=== PATIENT | male | born 1960 | race Caucasian/White ===

== ENCOUNTER 2024-12-22 06:49 | Inpatient (IN) | payer OTHER, SELFPAY ==
[2024-12-22] VITALS (12 sets, daily range): BP systolic 169–241; BP diastolic 81–132; PULSE 70; BMI 33.7
[2024-12-22 04:06] LABS: % Basophils 0.7 % (0-2); % Immature Granulocytes 0.6 % (0-0.5); % Lymphocytes 13.8 % (20.5-51.1); % Monocytes 7.7 % (1.7-9.3); % Neutrophils 74.2 % (42.2-75.2); Absolute Basophils 0.1 10^3/uL (0-0.2); Absolute Eosinophils 0.2 10^3/uL (0-0.7); Absolute Immature Granulocytes 0.1 10^3/uL (0-0.05); Absolute Lymphocytes 1.1 10^3/uL (1.2-3.4); Absolute Monocytes 0.6 10^3/uL (0.1-0.6); Hematocrit 43.9 % (39.0-52.0); Hemoglobin 15.6 g/dL (13.0-18.0); Mean Corp Hgb Conc. 35.5 g/dL (33.0-37.0); Mean Corpuscular Hgb 28.9 pg (27.0-31.0); Mean Corpuscular Volume 81.4 fL (80.0-94.0); Nucleated Red Blood Cells % 0 % (-); Platelet Count 168 10^3/uL (130-400); Red Blood Cell Count 5.39 10^6/uL (4.70-6.10); Red Cell Dist. Width 13.2 % (11.5-14.5); White Blood Cell Count 8.1 10^3/uL (4.8-10.8)
[2024-12-22 04:40] LABS: ALT (SGPT) 20 U/L (0-50); AST (SGOT) 20 U/L (17-59); Albumin 4.4 g/dl (3.5-5.0); Alkaline Phosphatase 92 U/L (38-126); Blood Urea Nitrogen 20 mg/dl (9-20); Calcium 8.9 mg/dl (8.4-10.2); Carbon Dioxide 23 mmol/L (22-30); Chloride 101 mmol/L (98-107); Glucose 413 mg/dl (70-99); Potassium 3.9 mmol/L (3.5-5.1); Sodium 134 mmol/L (135-145); Total Bilirubin 1.2 mg/dl (0.2-1.3); Total Protein 6.9 g/dl (6.3-8.2); eGFR > 60.00
[2024-12-22] MEDS: NSS 1000 IV (04:53)
[2024-12-22 05:37] LABS: Lactic Acid 2.2 mmol/L (0.7-2.0)
--- NOTE | 2024-12-22 05:59 | ED.GENMED ---
History of Present Illness
General
Chief Complaint: Rectal Bleeding
Source: patient
Exam Limitations: none
Time Seen by Provider: 12/22/24 04:35
Nursing documentation reviewed up to this point in time: agreed with
History of Present Illness
History of Present Illness:
This is a 64-year-old gentleman with history of hypertension, hlv-vhqcbhw-wehowdxiu diabetes, CAD.
He presents with rectal bleeding that began around 11 PM last night. He states he passed approximately 4-5 bright red to maroon bloody stools accompanied with intermittent generalized crampy abdominal pain. With each bowel movement passing
approximately a cupful of blood. No history of similar episodes in the past.
He takes no anticoagulants save for low-dose aspirin.
He denies dizziness nor lightheadedness, denies chest pain or palpitations, no coughing or shortness of breath, no nausea nor vomiting.
He has had a colonoscopy in the past but perhaps at least 10 years ago. He does not believe there was any significant findings.
Since arrival to the ED patient has passed 1 small to moderate size bloody bowel movement.
Medications include valsartan, metoprolol, low-dose aspirin, as needed Tylenol. He is prescribed glipizide but recently discontinued this on his own.
Past History
Past History
ED Past Medical History: CAD, HTN, Hypercholesterolemia and NIDDM
ED Past Surgical History: Cardiac (PTCA with stent) and Orthopedic (Knee arthroscopy)
Social History
Tobacco: Non-smoker
Alcohol: None
Personal: Single
Living: alone
Employment: Retired
Family History
Family History: Other (Noncontributory)
Phy Exam
Physical Exam
Physical Exam:
GENERAL: 64-year-old gentleman appears his stated age, awake and alert, pleasant, appears in no acute distress.
EYE: anicteric
NECK: Supple, nontender, no meningismus, no significant adenopathy.
ENT: oral mucosa is moist. No rhinorrhea.
CARDIAC: Regular rate and rhythm. no murmur.
LUNGS: Clear breath sounds bilaterally, no acute respiratory distress, no wheezes/rales/rhonchi
ABDOMEN: Soft, nondistended, without focal tenderness, no r/g, no cvat. normoactive BS.
NEUROLOGICAL: Alert and oriented x3, no focal neuro deficits. Gait is page and steady.
SKIN: Warm and dry, normal color, skin intact. No rash.
MUSCULOSKELETAL: No C/C/E. peripheral pulses are full and equal b/l. No palpable tenderness.
PSYCH: Normal and appropriate interaction.
Course
Orders/Labs/Results
Orders:
Orders
12/22/24 03:55
Complete Blood Count/With Diff Urgent
Comprehensive Metabolic Panel Urgent
12/22/24 04:47
CT Angio Abd/Pelvis w/wo IV [CT Abd/pelvis Angio W/wo Iv] Urgent
Comment:
Reason For Exam: acute rectal bleeding
0.9% Sodium Chloride 1000 ml [Nss] 1,000 ml IV 500 mls/hr
12/22/24 04:55
Type+Screen Urgent
Lactic Acid Urgent
12/22/24 05:23
ABO2 Routine
BBK Wristband Number:
Associate notified that ABO2 has been ordered: [id number]
Date: 12/22/24
Time: 05:17
Venetian Blind Cleaner ID: [id number]
Abnormal Lab Results
12/22/24 12/22/24
03:55 04:55
MPV 11.0 H fL
(7.4-10.4)
Abs Immat Gran (auto) 0.1 H 10^3/uL
(0-0.05)
Absolute Lymphs (auto) 1.1 L 10^3/uL
(1.2-3.4)
Immature Gran % 0.6 H %
(0-0.5)
Lymphocytes % 13.8 L %
(20.5-51.1)
Sodium 134 L mmol/L
(135-145)
Glucose 413 H mg/dl
(70-99)
Lactic Acid 2.2 H mmol/L
(0.7-2.0)
12/22/24 03:55
12/22/24 03:55
Vital Signs
Initial and Last Documented VS:
Initial Vital Signs
Temp Pulse Resp BP Pulse Ox
97.8 F 68 20 241/132 98
12/22/24 03:33 12/22/24 03:33 12/22/24 03:33 12/22/24 03:33 12/22/24 03:33
Last Documented Vital Signs
Temp Pulse Resp BP Pulse Ox
97.8 F 65 18 170/81 96
12/22/24 03:33 12/22/24 03:56 12/22/24 03:56 12/22/24 06:00 12/22/24 06:09
MDM/Problems Addressed
Differential Diagnosis Includes:
Acute rectal bleeding. Concern for internal hemorrhoidal bleeding, diverticular bleeding, AVM, ischemic bowel, infectious colitis, polypoid bleeding. Less likely upper GI bleed.
He remains hemodynamically stable.
Labs thus far are unremarkable save for moderately elevated glucose without acidosis.
Will check lactic acid.
Initiate IV fluids and will plan for CT angiogram abdomen and pelvis.
Due to significant acute rectal bleeding patient at risk for acute blood loss anemia/symptomatic anemia thus will require acute hospitalization for stabilization, continued monitoring and further assessment of source of GI bleeding.
MDM/Problems Addressed:
acute GI bleeding
DM-poorly controlled. elevated glucose without acidosis. likely r/t self d/c glipizide as well as acute stress response
HTN-markedly elevated upon arrival. improving.
Chronic conditions affecting care: DM, HTN and CAD
*Pulse Oximetry
SaO2: 96
Oxygen Mode of Delivery: Room air
Patient hypoxic: no
*Concrete Pump Operator Interpretation
Rate: normal
Interpretation: normal
Rhythm: sinus
*Critical Care Note
Total Time (30-74mins, 75-104mins- exclusive of procedures): 30
comment:
Critical care statement: A total of 30 minutes of critical care time was provided for this patient. This includes management of unstable vital signs, evaluation of the patient at bedside, reviewing the patient's pertinent medical records, discussion
with consultants, review of old EKGs and review of pertinent medical records. This time with separate from time utilized to perform the aforementioned documented procedures
ED Attending Note
-
Portions of this chart may have been created with voice recognition software.� Occasional wrong word or��sound alike� substitutions may have occurred due to the inherent limitations of voice recognition software.
Discharge Plan
Departure
Patient Disposition: Admit
Date of Disposition: 12/22/24
Time of Disposition: 06:36
Admit to: Telemetry
Presentation/result/management discussed w/ accepting MD/DO: Hospitalist
Condition: Serious
Discharge Problem:
Acute gastrointestinal bleeding, Accelerated essential hypertension, Poorly controlled NIDDM
Prescriptions:
No Action
aspirin 81 mg Tablet,Chewable
81 mg PO DAILY
atorvastatin
glimepiride
metoprolol succinate
valsartan
Referrals:
Nani Villavicencio CRNP [Family Provider, General]
Interventions
Interventions:
*Risk Screen - Suicide Last Done: 12/22/24 03:33
*General Assessment Last Done: 12/22/24 03:46
*Neglect/Abuse Screening Last Done: 12/22/24 03:33
*ED- Fall Risk Assessment Last Done: 12/22/24 03:46
*ED COVID-19 Vaccine History Last Done: 12/22/24 03:46
ES-Zqcyat-Hrjswmsjly Assessment Last Done: 12/22/24 03:46
ED- Cardiac Assessment Last Done: 12/22/24 03:46
ED- Pulmonary Assessment Last Done: 12/22/24 03:46
Discharge Date and Time
Print Language: HEBREW
--- NOTE | 2024-12-22 06:38 | HPS.HSE ---
Family Physician
-
Family Physician: PEREZ Patiño
Chief Complaint
-
Rectal bleeding
History of Present Illness
Patient is a 64y M with PMH significant for ASCVD, hypertension and DM-II who presents to ED complaining of rectal bleeding. Patient states that he had bloody BM last night around 11:30PM. He has had multiple additional episodes since that time
- approximately 1 cup of blood each time mixed with stool. He had a single episode here in the ED around 4 AM and no further BRBPR since that time. He denies any rectal pain, burning, etc. He states that he has had crampy abdominal pain
intermittently for the past 2-3 months. He has not been evaluated for this previously.
He denies any N/V, anorexia, fevers / chills, etc.
He denies any lightheadedness or dizziness.
BP in the ED today is markedly elevated which patient states is typical for him - especially at doctor's offices or hospitals.
Patient states that he has a prior history of diverticular disease, but no prior episodes of GI bleeding. He had a colonoscopy about 10 years ago.
He takes baby ASA daily but no other blood thinners.
Medical History
Past Medical History
Past Medical History: Reports Other
Additional Past Medical History:
ASCVD
Hypertension
DM-II
Obesity
Diverticular Disease
Past Surgical History: Reports Other
Additional Past Surgical History:
PTCA with Stent
ACL Repair
Social History
Tobacco: Former Smoker (Quit smoking many years ago. Minimal total use.)
Alcohol: None
Drug: None
Family History
Family History: Other (Father: CAD Mother: HTN, A-Fib)
Allergies / Home Medications
Allergies reflects when Allergies were last updated in [email or web address].
Home Medications with original date entered in [email or web address]
Allergy/Medication List:
Allergies
Allergy/AdvReac Type Severity Reaction Status Date / Time
No Known Allergies Allergy Verified 12/22/24 03:36
Home Medications
aspirin 81 mg chewable tablet 81 mg PO DAILY 12/22/24
atorvastatin 12/22/24
glimepiride 12/22/24
metoprolol succinate 12/22/24
valsartan 12/22/24
Review of Systems
-
History Source: Patient
A 12 point ROS was completed and negative except as noted: Yes
Constitutional: Denies Fever or Chills
Respiratory: Denies Cough or Trouble Breathing
Cardiac: Denies Chest Pain or Palpitations
Abdomen/GI: Reports Abdominal Pain and Bloody Stools; Denies Nausea, Vomiting or Diarrhea
: Reports Frequency; Denies Dysuria
Musculoskeletal: Denies Joint Pain or Edema
Neurological: Denies Dizzy or Headache
Psych: Denies Depression or Anxiety
Physical Exam
Vital Signs
Vital Signs
Temp Pulse Resp BP Pulse Ox
97.8 F 65 18 170/81 96
12/22/24 03:33 12/22/24 03:56 12/22/24 03:56 12/22/24 06:00 12/22/24 06:09
Physical Exam
General: Other (64y M in no acute distress.)
HEENT: Moist mucous membranes and PERRLA
Respiratory: Clear; No Wheezes, Rales or Rhonchi
Cardiac: S1/S2 and Regular Rhythm; No Murmur
GI: Soft, Non Tender, Non Distended and Normal Bowel Sounds
Musculoskeletal: No Clubbing, No Cyanosis and No Edema
Neuro: AO x 3
Laboratory Results
-
12/22/24 03:55
12/22/24 03:55
Laboratory Results
Lactic Acid 2.2 mmol/L (0.7-2.0) H 12/22/24 04:55
Total Bilirubin 1.2 mg/dl (0.2-1.3) 12/22/24 03:55
AST 20 U/L (17-59) 12/22/24 03:55
ALT 20 U/L (0-50) 12/22/24 03:55
Alkaline Phosphatase 92 U/L (38-126) 12/22/24 03:55
Impression/Plan
-
A/P: Patient is a 64y M with PMH significant for ASCVD, HTN and DM-II who presents to ED complaining of BRBPR.
Rectal Bleeding
- Admit for further evaluation and treatment.
- Multiple episodes overnight.
- CTA done in the ED - formal report pending at present.
- BP stable (high) and hemoglobin > 15 g/dL.
- Follow for any further episodes of BRBPR (last around 4 AM).
- GI evaluation for probable colonoscopy.
- NPO for now.
Benign Hypertension
- Markedly elevated BP initially in the ED and suspect overall chronic poor control.
- Knows names of home meds but not any doses.
- Begin Toprol / valsartan at estimated doses for now and change following formal med rec.
- IV hydralazine PRN very high BP.
- Adjust regimen as needed for improved control.
ASCVD
- Stable. No chest pain, dyspnea, etc at present.
- Hold ASA acutely given bleeding.
- Resume other usual CV medications following formal med rec.
DM-II
- Hyperglycemia (> 400) in the ED without elevated anion gap / acidosis.
- On glimepiride at home - ? dose.
- Follow glucose and cover with SSI for now.
- Begin dose of basal insulin and adjust as needed for improved control.
- Update A1C.
DVT Prophylaxis: SCDs
Code Status: Full
[2024-12-22 07:52] LABS: Glucose - Point of Care 325 mg/dl (70-99)
[2024-12-22 07:56] LABS: Hematocrit 40.9 % (39.0-52.0); Hemoglobin 14.3 g/dL (13.0-18.0)
[2024-12-22] MEDS: NSS (PRESERVATIVE FREE) 10 ML IV (08:00)
[2024-12-22] MEDS: PROTONIX IV 40 MG IV (08:00)
[2024-12-22] MEDS: DIOVAN 160 MG PO (08:00)
[2024-12-22] MEDS: TOPROL XL 50 MG PO ×2 (08:00→20:25)
[2024-12-22] MEDS: LANTUS 0.1 UNITS SC (08:01)
[2024-12-22] MEDS: NOVOLOG FLEXPEN-MODERATE RESISTANCE 7 UNITS SC (08:03)
[2024-12-22] MEDS: APRESOLINE 10 MG IV ×2 (08:10→17:55)
--- NOTE | 2024-12-22 08:28 | CON.GI ---
Consultation
-
Date/Time Consultation Requested: 12/22/2024
Date/Time Consultation Performed: 12/22/2024
Requesting Provider: dewayne lopez
Performing Provider: Dr. Peter
Reason for Consultation: Hematochezia
Medical History
Chief Complaint / HPI
Chief Complaint: Bright red blood from rectum
History of Present Illness:
Claudia is a 64-year-old male who was never been seen in the [facility] system including [facility] who has a history of CAD, vitiligo, hypertension, type 2 diabetes who came in 12/22/24 because of a painless urgent care along with red clots bloody bowel
movement around 1130 last night and has had multiple episodes since that time with approximately 1 cup red clots mixed with stool. He did have an episode in the emergency room at 4 AM and has had no further rectal bleeding since then. He a little
bit of cramping intermittently over the past 2 months but no significant abdominal pain. Denies any nausea vomiting fever chills. He is not lightheaded or dizzy. He has never had any GI bleeding but does know that he has diverticular disease.
Last colonoscopy was about 10 years ago. No blood thinners just on baby aspirin
Has occasional spasm with cold water but denies dysphagia. Not on any acid medication. States he has a hiatal hernia from an EGD done over a decade ago with Dr. Peguero. Denies any chronic nausea vomiting. Has lost about 5 pounds intentionally,
bowel movements are regular he goes at least once daily. Does not take any powdered fiber.
Past Medical History
Past Medical History: Other (CAD status post stents,, hypertension, type 2 diabetes, obesity, diverticular disease)
Past Surgical History: Other (ACL repair)
Social History
Tobacco: Former Smoker
Alcohol: None
Drug: None
Living: With Family
Family History
Family History: Other (CAD)
Allergies / Home Medications
Allergy/AdvReac Type Severity Reaction Status Date / Time
No Known Allergies Allergy Verified 12/22/24 03:36
�Medication �Instructions �Recorded
aspirin 81 mg chewable tablet 81 mg PO DAILY 12/22/24
atorvastatin 12/22/24
glimepiride 12/22/24
metoprolol succinate 12/22/24
valsartan 12/22/24
Review of Systems
-
All other systems: A 12 pt ROS was Negative except as stated above in HPI
Vital Signs
Temp Pulse Resp BP Pulse Ox
98.1 F 58 17 192/104 100
12/22/24 07:47 12/22/24 07:47 12/22/24 07:47 12/22/24 07:47 12/22/24 07:47
Physical Exam
Exam
General: Well Developed, Well Nourished, No Apparent Distress and Comfortable
HEENT: Anicteric
Respiratory: Clear
Cardiac: S1/S2
GI: Soft, Non Tender, Non Distended and Normal Bowel Sounds
Neuro: AO x 3
Psych: Calm
Results
WBC 8.1 10^3/uL (4.8-10.8) 12/22/24 03:55
Hgb 14.3 g/dL (13.0-18.0) 12/22/24 07:50
Hct 40.9 % (39.0-52.0) 12/22/24 07:50
MCV 81.4 fL (80.0-94.0) 12/22/24 03:55
Plt Count 168 10^3/uL (130-400) 12/22/24 03:55
Absolute Neuts (auto) 6.0 10^3/uL (1.4-6.5) 12/22/24 03:55
Sodium 134 mmol/L (135-145) L 12/22/24 03:55
Potassium 3.9 mmol/L (3.5-5.1) 12/22/24 03:55
Chloride 101 mmol/L (98-107) 12/22/24 03:55
Carbon Dioxide 23 mmol/L (22-30) 12/22/24 03:55
BUN 20 mg/dl (9-20) 12/22/24 03:55
Creatinine 1.2 mg/dL (0.7-1.3) 12/22/24 03:55
Calcium 8.9 mg/dl (8.4-10.2) 12/22/24 03:55
Total Bilirubin 1.2 mg/dl (0.2-1.3) 12/22/24 03:55
AST 20 U/L (17-59) 12/22/24 03:55
ALT 20 U/L (0-50) 12/22/24 03:55
Alkaline Phosphatase 92 U/L (38-126) 12/22/24 03:55
Diagnostic Image Results:
- 12/22/2024 CT bleeding scan shows no evidence of active extravasation, clinic diverticulosis, no evidence of acute diverticulitis. No bowel wall thickening obstruction or inflammation. Hepatic steatosis. 6.4 cm decreased enhancement in the
posterior aspect of the spleen consistent with a splenic infarct.
Prior GI Procedures:
EGD: states has a hiatal hernia with Dr. Peguero EGD years ago
Colonoscopy: Patient states [address] Peguero- unsure of results
Assessment / Plan
-
Claudia is a 64-year-old male with atherosclerotic disease, CAD on baby aspirin, uncontrolled type 2 diabetes and obesity who comes in with multiple episodes of painless hematochezia who is hypertensive and otherwise stable with no drop in hemoglobin
Chronic issues: CAD on baby aspirin, type 2 diabetes uncontrolled, hypertension, uncontrolled
# Hematochezia -multiple painless episodes -patient is hemodynamically stable, not requiring transfusion
Continues to have a normal hemoglobin 15.6, 14.3, normal platelet count, normal BUN, mildly elevated lactic acid of 2.2, creatinine 1.2, normal LFTs
-- Highly likely diverticular bleeding now stopped
--Clear liquids today, MiraLAX x 1, colonoscopy prep to start at 1600 for colonoscopy tomorrow
Reviewed CTA images myself and report on once daily
PPI here, give antihypertensives
Data Reviewed
-
CT Scan: Image Personally Visualized and interpreted and Report Reviewed by me
-
-
Thank you for consultation and allowing me to participate in the patient's care. Please call the [facility] [employer] consultant GI physician during the after hours with any questions or concerns.
--- NOTE | 2024-12-22 10:34 | W.PN.UPDATE ---
Update Note
Progress Note Update
Nonbillable addendum
Admitted 630 AM with rectal bleeding - last occurrence in ER department
also with hypertension
currently resting, no complaints
Assessment:
acute Rectal Bleeding
- CTA without active extravasation. Diverticulosis without diverticulitis
- start clears
- NPO p MN for Colonoscopy tomorrow. Prep per GI. d/w GI
- follow Hb
Benign Hypertension
- Markedly elevated BP initially in the ED and suspect overall chronic poor control.
- Knows names of home meds but not any doses.
- continue Toprol/valsartan at estimated doses for now and change following formal med rec.
- IV hydralazine PRN very high BP.
- Adjust regimen as needed for improved control.
ASCVD
- Stable. No chest pain, dyspnea, etc at present.
- Hold ASA acutely given bleeding.
- Resume other usual CV medications following formal med rec.
DM-II
- Hyperglycemia (> 400) in the ED without elevated anion gap / acidosis.
- On glimepiride at home - dose unknown
- Follow glucose and cover with SSI for now.
- Begin dose of basal insulin and adjust as needed for improved control. Patient states he will not accept home insulin
- Update A1C.
DVT Prophylaxis: SCDs
Code Status: Full
[2024-12-22 11:56] LABS: Glucose - Point of Care 278 mg/dl (70-99)
[2024-12-22] MEDS: MIRALAX 17 GRAMS PO (12:47)
[2024-12-22] MEDS: NOVOLOG FLEXPEN-MODERATE RESISTANCE 5 UNITS SC ×2 (13:23→17:49)
[2024-12-22 13:29] LABS: Hematocrit 44.3 % (39.0-52.0); Hemoglobin 15.8 g/dL (13.0-18.0)
--- NOTE | 2024-12-22 13:51 | CM ---
Patient seen at bedside with his sister & mother
IA completed
Dx: Rectal bleed
PMH: ASCVD, hypertension and DM-II
Lives with mother & son in a 2 story home, 0 step to enter, flight to second floor bed/bath
PLOF: Independent
DME: CPAP
Denies VN/Rehab
Denies insecurities
PCP: Nani Villavicencio
Pharmacy: [address] [facility]
PLAN: Home, no needs anticipated
[2024-12-22] MEDS: NULYTELY SOLUTION 4 LITERS PO (16:08)
[2024-12-22 16:31] LABS: Glucose - Point of Care 261 mg/dl (70-99)
[2024-12-22] MEDS: TYLENOL 650 MG PO (20:33)
--- NOTE | 2024-12-23 01:00 | PTCARENOTE ---
Patient refusing 2300 vitals and 0000 Accu check. Education provided. Will continue to monitor.
[2024-12-23] MEDS: NOVOLOG FLEXPEN-MODERATE RESISTANCE SC ×2 (01:06→06:17)
--- NOTE | 2024-12-23 03:50 | PTCARENOTE ---
Patient refusing 0300 vitals and last H&H check. Will continue to monitor.
[2024-12-23 06:12] LABS: Hematocrit 43.1 % (39.0-52.0); Hemoglobin 14.9 g/dL (13.0-18.0); Mean Corp Hgb Conc. 34.6 g/dL (33.0-37.0); Mean Corpuscular Hgb 28.5 pg (27.0-31.0); Mean Corpuscular Volume 82.4 fL (80.0-94.0); Mean Platelet Volume 10.9 fL (7.4-10.4); Platelet Count 152 10^3/uL (130-400); Red Blood Cell Count 5.23 10^6/uL (4.70-6.10); Red Cell Dist. Width 13.5 % (11.5-14.5); White Blood Cell Count 5.8 10^3/uL (4.8-10.8)
[2024-12-23 06:35] LABS: Blood Urea Nitrogen 14 mg/dl (9-20); Calcium 8.6 mg/dl (8.4-10.2); Carbon Dioxide 22 mmol/L (22-30); Chloride 106 mmol/L (98-107); Estimated Creatinine Clearance 92 ml/min; Glucose 267 mg/dl (70-99); Sodium 135 mmol/L (135-145); eGFR > 60.00
[2024-12-23 06:54] LABS: Lactic Acid 1.2 mmol/L (0.7-2.0)
[2024-12-23 07:00] VITALS: BP 169/100
[2024-12-23 07:57] LABS: Glycohemoglobin (HgbA1c) 10.8 % (4.0-5.6)
[2024-12-23] MEDS: DIOVAN 160 MG PO ×2 (08:09→12:55)
[2024-12-23] MEDS: TOPROL XL 50 MG PO (08:10)
[2024-12-23] MEDS: NSS (PRESERVATIVE FREE) 10 ML IV (08:10)
[2024-12-23] MEDS: PROTONIX IV 40 MG IV (08:10)
[2024-12-23] MEDS: MIRALAX PO (08:11)
[2024-12-23] MEDS: LANTUS SC ×2 (08:11→08:25)
--- NOTE | 2024-12-23 10:37 | W.PN.HOSP.TC ---
Today's Communication/Plan
-
await colonoscopy results
possible dc pending findings
Assessment / Plan
Assessment / Plan
Assessment:
acute Rectal Bleeding
- CTA without active extravasation. Diverticulosis without diverticulitis
- NPO for colonoscopy today with GI
- follow Hb which is stable.
Benign Hypertension
- Markedly elevated BP initially in the ED and suspect overall chronic poor control.
- Knows names of home meds but not any doses.
- continue Toprol/valsartan - titrate as needed
- IV hydralazine PRN very high BP.
- Adjust regimen as needed for improved control.
ASCVD
- Stable. No chest pain, dyspnea, etc at present.
- Hold ASA acutely given bleeding.
- Resume other usual CV medications following formal med rec.
DM-II
- Hyperglycemia (> 400) in the ED without elevated anion gap / acidosis.
- On glipizide 10mg daily
- Follow glucose and cover with SSI for now.
- Begin dose of basal insulin and adjust as needed for improved control. Patient states he will not accept home insulin
- A1c 10.8%
Hypothyroidism on replacement
DVT Prophylaxis: SCDs
Code Status: Full
Anticipated Discharge: Within 24 hours
Subjective/Interval History
-
Date of Service: December 23, 2024
Hb stable >14
no further bleeds
for colonoscopy today
Objective Data
-
Labs:
Laboratory Results
12/22/24 12/23/24 12/23/24
23:17 01:33 05:51
WBC 5.8
Hgb Cancelled Cancelled 14.9
Hct Cancelled Cancelled 43.1
Plt Count 152
Sodium 135
Potassium 4.0
Chloride 106
Carbon Dioxide 22
BUN 14
Creatinine 1.1
Glucose 267 H
Calcium 8.6
Vital Signs:
Vital Signs
Temp Pulse Resp BP Pulse Ox
97.7 F 65 18 169/100 98
12/23/24 07:00 12/23/24 08:10 12/23/24 07:00 12/23/24 08:10 12/23/24 09:00
I&O
12/22/24 12/23/24 12/24/24
06:59 06:59 06:59
Intake Total 320 / 320
Balance 320 / 320
Physical Exam
-
General: No Apparent Distress
HEENT: Normocephalic and Atraumatic
Respiratory: Negative Wheezes
Cardiac: Regular Rhythm and S1/S2
GI: Nondistended
Genito-urinary: No Costovertebral Tender
Neuro: AO x 3
Psych: Calm
Data Reviewed
-
Total Time Spent with Patient (in minutes): 42
Labs: Labs Reviewed by me
[2024-12-23 11:30] VITALS: BP 148/126; BP_SYST 14
[2024-12-23 11:37] LABS: Glucose - Point of Care 275 mg/dl (70-99)
[2024-12-23 11:45] VITALS: BP 195/84
[2024-12-23] MEDS: APRESOLINE 10 MG IV (11:48)
[2024-12-23 12:00] VITALS: BP 145/77; BP_SYST 10
[2024-12-23 12:32] LABS: Glucose - Point of Care 293 mg/dl (70-99)
--- NOTE | 2024-12-23 12:44 | W.DS.TRANS ---
DC Summary - Asthma Educator
-
Discharge Instructions:
Discharge Diagnosis/Procedures GI bleeding with diverticulosis on Colonoscopy
also polyps (removed)
Diet 2 Gram Sodium,Diabetic, Carb Controlled
Activity As tolerated
Instructions:
Stand-Alone Forms:
Changes to Home Medications: No
Discharge Medications:
DC Medications w/original date entered in [facility]
aspirin 81 mg chewable tablet 81 mg PO DAILY Blood Clot Prevention/Tx 12/22/24
atorvastatin 20 mg tablet (Lipitor) 20 mg PO DAILY #30 tabs 12/23/24
glipizide 10 mg tablet, extended release 24 hr 10 mg PO DAILY Diabetes #30 tabs 12/23/24
levothyroxine 150 mcg tablet 150 mcg PO DAILY@06 Thyroid #30 tabs 12/23/24
metoprolol tartrate 50 mg tablet 50 mg PO BID Blood Pressure #60 tabs 12/23/24
valsartan 160 mg tablet 320 mg (2 x 160 mg) PO DAILY #60 tabs 12/23/24
Home Medication Changes
Pending Results: No
Total time spent discharging patient (in min): 42
[2024-12-23] MEDS: NOVOLOG FLEXPEN-MODERATE RESISTANCE 5 UNITS SC (12:52)
== END 2024-12-23 14:03 | disposition home or self-care (01) | DRG 378 ==
LOC: 3 WEST ACU 06:49
PROVIDERS: ADMITTING PHYSICIAN Hospitalist; ATTENDING PHYSICIAN Internal Medicine; CONSULT PHYSICIAN Internal Medicine; EMERGENCY PHYSICIAN Emergency Medicine; FAMILY PHYSICIAN Nurse Practitioner Adult Health
PROC: 0DBK8ZX Excision of Ascending Colon, Via Natural or Artificial Opening Endoscopic, Diagnostic (ICD-10-PCS; 2024-12-23)
PROC: 0DBP8ZX Excision of Rectum, Via Natural or Artificial Opening Endoscopic, Diagnostic (ICD-10-PCS; 2024-12-23)
PROC: 0DBN8ZX Excision of Sigmoid Colon, Via Natural or Artificial Opening Endoscopic, Diagnostic (ICD-10-PCS; 2024-12-23)
PROC: 0DBL8ZX Excision of Transverse Colon, Via Natural or Artificial Opening Endoscopic, Diagnostic (ICD-10-PCS; 2024-12-23)
DX: K57.31 Diverticulosis of large intestine without perforation or abscess with bleeding (principal); E87.20 Acidosis, unspecified; D12.5 Benign neoplasm of sigmoid colon; D12.3 Benign neoplasm of transverse colon; I10 Essential (primary) hypertension; I25.10 Atherosclerotic heart disease of native coronary artery without angina pectoris; E03.9 Hypothyroidism, unspecified; E11.9 Type 2 diabetes mellitus without complications; D12.2 Benign neoplasm of ascending colon; D12.8 Benign neoplasm of rectum; E66.9 Obesity, unspecified; Z68.33 Body mass index [BMI] 33.0-33.9, adult; E78.00 Pure hypercholesterolemia, unspecified; K64.8 Other hemorrhoids; Z79.82 Long term (current) use of aspirin; Z82.49 Family history of ischemic heart disease and other diseases of the circulatory system; Z87.891 Personal history of nicotine dependence; Z95.5 Presence of coronary angioplasty implant and graft
CPT/HCPCS: 88305; 74174; 80048; 80053; 82962; 83036; 83605; 85014; 85018; 85025; 85027; 86850; 86900; 86901; 94660; 96360; 96361; 99291; Q9967

== ENCOUNTER 2025-04-15 15:49 | Emergency (ER) | payer OTHER, SELFPAY ==
[2025-04-15 15:52] VITALS: BP 191/128
[2025-04-15 16:13] LABS: Hematocrit 47.9 % (39.0-52.0); Hemoglobin 16.1 g/dL (13.0-18.0); Mean Corp Hgb Conc. 33.6 g/dL (33.0-37.0); Mean Corpuscular Volume 87.1 fL (80.0-94.0); Nucleated Red Blood Cells % 0 % (-); Platelet Count 180 10^3/uL (130-400); Red Cell Dist. Width 14.2 % (11.5-14.5)
[2025-04-15 16:24] LABS: ALT (SGPT) 30 U/L (0-50); AST (SGOT) 38 U/L (17-59); Albumin 5.1 g/dl (3.5-5.0); Alkaline Phosphatase 74 U/L (38-126); Blood Urea Nitrogen 22 mg/dl (9-20); Calcium 9.7 mg/dl (8.4-10.2); Carbon Dioxide 30 mmol/L (22-30); Chloride 98 mmol/L (98-107); Glucose 112 mg/dl (70-99); Potassium 4.1 mmol/L (3.5-5.1); Sodium 133 mmol/L (135-145); Total Protein 8.5 g/dl (6.3-8.2); eGFR 47.23
[2025-04-15 19:23] VITALS: BP 218/113
--- NOTE | 2025-04-15 19:36 | ED.GENMED ---
History of Present Illness
General
Chief Complaint: Blood Pressure Problem
Source: patient
Time Seen by Provider: 04/15/25 19:23
History of Present Illness
History of Present Illness:
65-year-old male diabetic known hypertensive admits to not being compliant with his hypertensive medications recently was sent in by family doctor for elevated blood pressure. He denies headache or blurry vision. He was triage stating that he had
ringing in his years but has since resolved. He was here in November admitted to the hospital for rectal bleeding was discharged at that time on valsartan 300 Trilling 8 mg total daily between 160 mg twice a day. He states he did not like the way it
makes him feel and he decrease this to 80 mg of valsartan daily. He actually did not take it today yet. He also did not take his 50 mg of metoprolol yet. He denies chest pain.
Past History
Past History
ED Past Medical History: CAD, HTN, Hypercholesterolemia and NIDDM
ED Past Surgical History: Cardiac (PTCA with stent) and Orthopedic (Knee arthroscopy)
Social History
Tobacco: Non-smoker
Alcohol: None
Personal: Single
Living: alone
Employment: Retired
Family History
Family History: Other (Noncontributory)
Phy Exam
Physical Exam
Physical Exam:
General: Well-appearing male no acute respiratory distress
HEENT normal cephalic atraumatic
Heart: Regular rate and rhythm
Lungs: Clear no wheeze
Neurologic exam: Alert and oriented no facial asymmetry conversing appropriately
Course
Orders/Labs/Results
Orders:
Orders
04/15/25 15:55
EKG [Electrocardiogram (*1)] Urgent
Reason for Study: Vertigo / Dizzy
EKG- Treatment ONCE
04/15/25 16:03
CBC/With Diff [Complete Blood Count/With Diff] Urgent
CMP [Comprehensive Metabolic Panel] Urgent
04/15/25 19:35
Metoprolol [Lopressor] 50 mg PO NOW STA
Valsartan [Diovan] 160 mg PO NOW STA
Abnormal Lab Results
04/15/25
16:03
Eosinophils % 7.0 H %
(0-6)
Sodium 133 L mmol/L
(135-145)
BUN 22 H mg/dl
(9-20)
Creatinine 1.6 H mg/dL
(0.7-1.3)
Glucose 112 H mg/dl
(70-99)
Total Protein 8.5 H g/dl
(6.3-8.2)
Albumin 5.1 H g/dl
(3.5-5.0)
04/15/25 16:03
04/15/25 16:03
Vital Signs
Initial and Last Documented VS:
Initial Vital Signs
Temp Pulse Resp BP Pulse Ox
98.7 F 79 14 191/128 99
04/15/25 15:52 04/15/25 15:52 04/15/25 15:52 04/15/25 15:52 04/15/25 15:52
Last Documented Vital Signs
Temp Pulse Resp BP Pulse Ox
98.7 F 79 14 218/113 99
04/15/25 15:52 04/15/25 15:52 04/15/25 15:52 04/15/25 19:50 04/15/25 19:38
MDM/Problems Addressed
Differential Diagnosis Includes:
Elevated blood pressure. Reading in the room was 218/113. Patient admits to not taking his blood pressure medication. Will give him 50 mg of metoprolol and 160 mg of Diovan now.
Patient expresses his desire to leave. Explained that his blood pressure is quite high and he understands this we also understands he has been taking his medication. He is neurologically intact without any other symptoms otherwise. He is due to
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
*Pulse Oximetry
SaO2: 99
Oxygen Mode of Delivery: Room air
Patient hypoxic: no
*Critical Care Note
Total Time (30-74mins, 75-104mins- exclusive of procedures): Not Applicable
Update Note
Update Note:
Patient again advised that his blood pressure is quite high today which could lead him to risk for strokes. He is aware of this. He notes he has been taking his medication. Has a follow-up appointment with his gear shaver set up operator in 3 days. He wishes
to leave.
ED Attending Note
-
Portions of this chart may have been created with voice recognition software.� Occasional wrong word or��sound alike� substitutions may have occurred due to the inherent limitations of voice recognition software.
Discharge Plan
Departure
Patient Disposition: Home (Routine Discharge)
Date of Disposition: 04/15/25
Time of Disposition: 20:09
Patient with high blood pressure during this ER visit?: No
Discharge Problem:
Hypertension
Prescriptions:
No Action
aspirin 81 mg Tablet,Chewable
81 mg PO DAILY
atorvastatin [Lipitor] 20 mg tablet
20 mg PO DAILY Qty: 30 0RF
valsartan 160 mg Tablet
320 mg PO DAILY Qty: 60 0RF
glipizide 10 mg tablet extended release 24hr
10 mg PO DAILY Qty: 30 0RF
levothyroxine 150 mcg tablet
150 mcg PO DAILY@06 Qty: 30 0RF
metoprolol tartrate 50 mg tablet
50 mg PO BID Qty: 60 0RF
Referrals:
UNKNOWN - PT DOES,NOT KNOW [Unknown Provider]
Activity Restrictions/Additional Instructions:
Continue with metoprolol 50 mg daily and continue with valsartan 80 mg twice a day until follow-up with your gear shaver set up operator as planned. Return if worse otherwise
Interventions
Interventions:
*Risk Screen - Suicide Last Done: 04/15/25 15:52
*General Assessment Last Done: 04/15/25 15:52
*Neglect/Abuse Screening Last Done: 04/15/25 15:52
*ED COVID-19 Vaccine History Last Done: 04/15/25 15:52
*ED Influenza Vaccine History Last Done: 04/15/25 15:52
ED- Cardiac Assessment Last Done: 04/15/25 19:33
ED- Neurological Assessment Last Done: 04/15/25 19:33
ED- Pulmonary Assessment Last Done: 04/15/25 19:33
Discharge Date and Time
Print Language: DOMINICAN
[2025-04-15] MEDS: LOPRESSOR 50 MG PO (19:50)
[2025-04-15] MEDS: DIOVAN 160 MG PO (19:50)
[2025-04-15 20:14] VITALS: BP 223/120
== END 2025-04-15 20:20 | disposition home or self-care (01) ==
LOC: EMR 15:49
PROVIDERS: Emergency Medicine; EMERGENCY PHYSICIAN Emergency Medicine; FAMILY PHYSICIAN Family Medicine
DX: I10 Essential (primary) hypertension (principal); E78.00 Pure hypercholesterolemia, unspecified; E11.9 Type 2 diabetes mellitus without complications; I25.10 Atherosclerotic heart disease of native coronary artery without angina pectoris; Z95.5 Presence of coronary angioplasty implant and graft; Z91.148 Patient's other noncompliance with medication regimen for other reason
CPT/HCPCS: 99284; 80053; 85025; 93005